=== PATIENT | male | born 1960 | race Caucasian/White ===

== ENCOUNTER 2021-01-19 18:37 | Emergency (ER) | payer MEDICARE ==
[~2021-01-19 18:37] MED LIST: LIDOCAINE 5% P1 EACH TOP; VOLTAREN100 GM TOP
== END 2021-01-19 22:30 | disposition left against medical advice (07) ==
LOC: FER 18:37
DX: Z53.8 Procedure and treatment not carried out for other reasons (principal)
CPT/HCPCS: 93005